=== PATIENT | female | born 1980 | race African-American/Black ===

== ENCOUNTER 2019-03-15 16:30 | Emergency (ER) | payer BC ==
[~2019-03-15] VITALS: Ht 175.3 cm; Wt 78.0 kg
[~2019-03-15 16:30] MED LIST: DOXYCYCLINE 10100 MG PO; ZYRTEC10 MG PO
[2019-03-15 16:57] LABS: ABSOLUTE NEUTROPHILS 3.8 thou/uL (1.4-8.2); BASOPHILS 1.2 % (0.0-2.0); EOSINOPHILS 5.8 % (0.0-3.0); HEMOGLOBIN 12.9 gm/dL (12.0-15.0); LYMPHOCYTES 41.8 % (24.0-44.0); MCH 27.2 pg (26.0-34.0); MCHC 32.2 g/dL (28.0-37.0); MCV 84.4 fL (80.0-100.0); MONOCYTES 7.4 % (1.0-8.0); PLATELET COUNT 344 thou/uL (150-400); POLYS 43.8 % (36.0-66.0); RBC 4.74 mil/uL (4.20-5.00); RDW 14.1 % (10.5-14.5); WBC 8.7 thou/uL (4.0-11.0)
[2019-03-15 17:00] LABS: ANION GAP 11 mmol/L (7-16); BUN 15 mg/dL (7-18); CHLORIDE 104 mmol/L (98-107); CO2 24 mmol/L (21-32); CREATININE 1.1 mg/dL (0.6-1.0); GLUCOSE 90 mg/dL (74-106); POTASSIUM 3.7 mmol/L (3.5-5.1); SODIUM 139 mmol/L (136-145)
[2019-03-15 17:09] LABS: MAGNESIUM 1.8 mg/dL (1.8-2.4); TROPONIN-I <0.06 ng/mL (<0.06)
[2019-03-15] MEDS ORDERED: DILTIAZEM 24HR180 M1 PO (18:05)
[2019-03-15 18:22] VITALS: BP 117/84
--- NOTE | 2019-03-16 09:44 | EKG ---
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 : 1980 Requested By: Alexis Bradshaw Order Number: [id number] MD: Alton Powell Measurements Intervals [place] Rate: 217 P: 0 [place]: QRS: 56 QRSD: 83 T: -31 QT: 237 QTc: 451 Interpretive Statements Supraventricular tachycardia Repolarization abnormality, prob rate related No previous ECG available for comparison Electronically Signed On 03-16-2019 9:44:31 PLASTICS AND COMPOSITES INSPECTOR by Alton Powell [email or web address] <ELECTRONICALLY SIGNED> By: Alton Powell MD, [facility] 03/16/19 0944 1629 1629 Alton Powell MD, FACC /EPI
--- NOTE | 2019-03-16 09:45 | EKG ---
[address] [address] ELECTROCARDIOGRAM REPORT Name: TRE LEPE UMESH Room #: DEP [facility]#: [id number] Admission: 03/15/19 Attend Phys: Discharge: 03/15/19 Date of : 76 Report #: [id number] THIS REPORT FOR: //name// [facility] ED Test Date: 2019-03-15 Test Time: 16:41:16 Pat Name: TRE LEPE Department: Room: Gender: F Vp Software: CHRIS : 1980 Requested By: Alexis Bradshaw Order Number: [id number] MD: Alton Powell Measurements Intervals [place] Rate: 107 P: 61 [place]: 160 QRS: 49 QRSD: 98 T: 26 QT: 330 QTc: 441 Interpretive Statements Sinus tachycardia Normal tracing No previous ECG available for comparison Electronically Signed On 03-16-2019 9:44:43 STAKING PRESS OPERATOR by Alton Powell [email or web address] <ELECTRONICALLY SIGNED> By: Alton Powell MD, [facility] 03/16/19 0944 1641 1641 Alton Powell MD, FACC /EPI
== END 2019-03-15 18:37 | disposition home or self-care (01) ==
LOC: ER 16:30
PROVIDERS: Emergency Medicine
DX: I47.1 Supraventricular tachycardia (principal); Z98.51 Tubal ligation status; Z88.1 Allergy status to other antibiotic agents

== ENCOUNTER 2019-03-17 11:53 | Emergency (ER) | payer BC ==
[~2019-03-17] VITALS: Ht 175.3 cm; Wt 78.0 kg
[~2019-03-17 11:53] MED LIST changes: +DILTIAZEM 24HR180 M1 PO
[2019-03-17 12:28] LABS: ABSOLUTE NEUTROPHILS 2.8 thou/uL (1.4-8.2); BASOPHILS 0.7 % (0.0-2.0); HEMATOCRIT 38.9 % (37.0-47.0); HEMOGLOBIN 12.5 gm/dL (12.0-15.0); LYMPHOCYTES 33.7 % (24.0-44.0); MCH 26.9 pg (26.0-34.0); MCHC 32.2 g/dL (28.0-37.0); MCV 83.6 fL (80.0-100.0); PLATELET COUNT 290 thou/uL (150-400); POLYS 50.6 % (36.0-66.0); RBC 4.66 mil/uL (4.20-5.00); RDW 13.7 % (10.5-14.5); WBC 5.5 thou/uL (4.0-11.0)
[2019-03-17 12:40] LABS: ANION GAP 9 mmol/L (7-16); BUN 9 mg/dL (7-18); CHLORIDE 106 mmol/L (98-107); CO2 21 mmol/L (21-32); GLUCOSE 88 mg/dL (74-106); SODIUM 136 mmol/L (136-145)
[2019-03-17 12:49] LABS: MAGNESIUM 1.9 mg/dL (1.8-2.4); TROPONIN-I <0.06 ng/mL (<0.06)
[2019-03-17 14:07] VITALS: BP 119/80
--- NOTE | 2019-03-18 11:14 | EKG ---
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: [facility] : 1980 Requested By: Michael Branch Order Number: [id number] MD: Benito Campos Measurements Intervals [place] Rate: 88 P: 18 [place]: 158 QRS: -4 QRSD: 93 T: 14 QT: 391 QTc: 473 Interpretive Statements Sinus rhythm Probable left atrial enlargement Compared to ECG 03/15/2019 16:41:16 Sinus tachycardia no longer present Electronically Signed On 03-18-2019 11:14:21 OUTPATIENT PHYSICAL THERAPIST ASSISTANT by Benito Campos [email or web address] <ELECTRONICALLY SIGNED> By: Benito Campos MD 03/18/19 1114 1204 120 Benito Campos MD /SHAYY
== END 2019-03-17 14:07 | disposition home or self-care (01) ==
LOC: ER 11:53
PROVIDERS: Emergency Medicine
DX: R07.89 Other chest pain (principal); Z88.1 Allergy status to other antibiotic agents; Z88.3 Allergy status to other anti-infective agents; Z79.899 Other long term (current) drug therapy; Z98.51 Tubal ligation status; Z98.890 Other specified postprocedural states

== ENCOUNTER → 2019-04-24 | Outpatient (CLI) | payer BC | END | disposition home or self-care (01) | LOC: SJCVCIMAG 09:37 | DX: I07.1 Rheumatic tricuspid insufficiency (principal); I47.1 Supraventricular tachycardia ==

== ENCOUNTER 2019-05-07 06:28 | Observation (INO) | payer BC ==
[~2019-05-07] VITALS: Ht 175.3 cm; Wt 83.5 kg
[2019-05-07] VITALS (11 sets, daily range): BP systolic 97–145; BP diastolic 68–86
[2019-05-07] MEDS ORDERED: BENADRYL25 MG PO (07:26)
[2019-05-07 07:40] LABS: ABSOLUTE NEUTROPHILS 3.1 thou/uL (1.4-8.2); BASOPHILS 1.1 % (0.0-2.0); EOSINOPHILS 10.3 % (0.0-3.0); HEMATOCRIT 35.9 % (37.0-47.0); HEMOGLOBIN 11.5 gm/dL (12.0-15.0); LYMPHOCYTES 32.7 % (24.0-44.0); MCH 26.9 pg (26.0-34.0); MCV 84.1 fL (80.0-100.0); MONOCYTES 10.1 % (1.0-8.0); PLATELET COUNT 267 thou/uL (150-400); POLYS 45.8 % (36.0-66.0); RBC 4.27 mil/uL (4.20-5.00); RDW 13.8 % (10.5-14.5); WBC 6.7 thou/uL (4.0-11.0)
[2019-05-07 07:51] LABS: INR 1.1; PROTIME 10.9 Seconds (9.3-11.4)
[2019-05-07 07:54] LABS: CALCIUM 8.1 mg/dL (8.5-10.1); POTASSIUM 4.2 mmol/L (3.5-5.1)
[2019-05-07 08:01] LABS: ALBUMIN 3.4 g/dL (3.4-5.0); TOTAL BILIRUBIN 0.2 mg/dL (<0.1-1.0); TOTAL PROTEIN 6.9 g/dL (6.4-8.2)
--- NOTE | 2019-05-07 16:36 | NUR ---
PATIENT ARRIVED FROM CATHLAB AT 1300, ALERT AND ORIENTED X4. TIAN GRION SIDE ACCESSED, NIKITA DRESSING INTACT, AND INSTRUCTED PATIENT TO IMMOBOLIZE BLE. VSS AND ADMISSION COMPLETED. PATIENT VOIDED X2. BLE GRION SITE REMAINS INATCT AND WILL CONTINUE WITH POC.
[2019-05-08 00:18] VITALS: BP 118/67
[2019-05-08 00:55] VITALS: BP 118/67
--- NOTE | 2019-05-08 04:24 | NUR ---
ASSESSMENT DOCUMENTED.PT BEEN RESTING IN NO ACUTE DISTRESS.S/P ABLATION.NSR ON MONITOR.VSS.TIAN GROINS INTACT W/O HEMATOMA OR ACTIVE BLEEDING.PULSES 2+ IN ALL EXTREMITIES.UP AD LALIT TO BR,VOIDING ADEQUATELY.POC IS TO DISCHARGE TO HOME TODAY.
[2019-05-08 04:47] VITALS: BP 118/67
[2019-05-08 05:10] VITALS: BP 132/78
[2019-05-08 08:14] VITALS: BP 121/78
[2019-05-08 09:10] VITALS: BP 121/78
--- NOTE | 2019-05-08 10:02 | NUR ---
ASSUMED CARE AT SHIFT CHANGE, ALERT AND ORIENTED X4. SR AND VSS. DISCHARGE INSTRUCTION, AND MEDICATION GIVEN TO PT.
--- NOTE | 2019-05-11 13:02 | P ---
[facility] [place] [address] PROCEDURE REPORT Name: TRE LEPETTE Room #: 205-P [facility]#: [id number] Admission: 05/07/19 Attend Phys: Benito Campos MD Discharge: 05/08/19 Date of : 76 Report #: [id number] THIS REPORT FOR: //name// CC: Florencia Campos DATE OF SERVICE: 05/07/2019 SVT ABLATION PREOPERATIVE DIAGNOSIS: Supraventricular tachycardia. 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 HISTORY: The patient is a 38-year-old female with recurrent supraventricular tachycardia, recently in the Emergency Room with SVT that was terminated with IV adenosine. She is here for EP study and possible ablation. PROCEDURES PERFORMED: 1. SVT ablation, CPT code 99101. 2. EP with left atrial pacing and recording, CPT code 07427. 3. Program stimulation pacing after IV drug infusion, CPT code 97687. 4. Intracardiac echo, CPT code 31864. 5. 3D mapping, CPT code 41710. 6. Mapping of tachycardia, CPT code 59426. 7. Arterial line placement, CPT code 67467. 8. Transseptal procedure, CPT code 45355. ANESTHESIA: The patient underwent MAC anesthesia with no anesthesia related complications. DESCRIPTION OF PROCEDURE: The patient underwent informed consent, where we discussed the details of the procedure including the risks, which include but not limited to bleeding, vascular damage, cardiac perforation, stroke and MD. She understood these risks and is willing to proceed. The patient was brought to the EP laboratory in a fasting and unsedated state and prepped and draped in a sterile fashion. I obtained access to the bilateral femoral veins, initially pacing at 8 and 6-Belgian short sheath in the right femoral vein and a 6 and 7-Belgian short sheath in the left femoral vein. Once the diagnosis was made, I placed a 9-Belgian short sheath in the right femoral vein for the ICE catheter and I obtained access to the right femoral artery, placing a 5-Belgian short sheath for continuous arterial blood pressure monitoring. [facility] [address] [place] [address] PROCEDURE REPORT Name: TRE LEPE Room #: 205-P [facility] Dayanara.#: [id number] Admission: 05/07/19 Attend Phys: Benito Campos MD Discharge: 05/08/19 Date of : 76 Report #: [id number] After sheaths were placed, I placed 3 quadripolar catheters at the HRA, His and RV positions and a decapolar catheter was placed easily in the coronary sinus, which was utilized for left atrial pacing and recording. Next, I checked thresholds on my RV and it was clear that the patient had a left-sided pathway immediately. Next, a basic EP study was performed. At baseline, the patient was in sinus rhythm with sinus cycle length of 590 milliseconds, RI interval 150 milliseconds, QRS duration 100 milliseconds, QT interval 345 milliseconds, AH interval 102 milliseconds, and HV interval of 35 milliseconds. Atrial pacing was performed and AV block was noted at 290 milliseconds. Atrial ERP was noted at 270 milliseconds at a [address] cycle length. There was no evidence of manifest preexcitation. Next, ventricular pacing was performed and VA block was noted at 290 milliseconds and block occurred at the level of the accessory pathway. There was clearly eccentric atrial activation with earliest atrial activity noted at CS1-2 and the latest atrial activity noticed at the HRA catheter. Single atrial extrastimuli were delivered and the SVT was not induced. Isoproterenol infusion was started at 2 mcg per minute. With atrial burst pacing, the patient went into SVT, which was clearly a pathway mediated tachycardia. The tachycardia cycle length was 260 milliseconds. The septal to CS 1-2 was 86 milliseconds and the septal to His A was 140 milliseconds. Next, ventricular entrainment was performed and there was evidence of a V-A-H-V response consistent with AVRT. I was able to terminate this with atrial burst pacing. TRANSSEPTAL PROCEDURE: As such, the patient clearly had a left-sided pathway. I placed a 9-Belgian short sheath in the right femoral vein and placed an ICE catheter up into the right atrium. We created a detailed 3D geometry of the left atrium as well as the mitral valve. The patient was then systemically heparinized and a transseptal was performed using a SL1 sheath and a Dexter needle. This was straightforward. I then placed the ablation catheter into the left atrium. We utilized a SmartTouch ThermoCool ablation catheter. 3D MAPPING AND ABLATION: Next, I created a detailed 3D geometry of the left atrium and the mitral valve. At around 3:00 or 4:00 along the mitral annulus, we found a fusion of the ventricular and atrial signals. I initially performed mapping while pacing the ventricle. While mapping, the patient did go into atrial fibrillation, which lasted about a minute and then this organized into atrial flutter, which lasted another 1-2 minutes. I. I attempted to pace terminate this which was unsuccessful, but then she converted to sinus on her own. She did not require cardioversion. As we were performing the mapping, we appeared to have found the earliest site and we had a nice signal here where there appeared to be nice fusion between the ventricular and atrial signal and there appeared to be a pathway potential noted as well. Therefore, ablation was performed at this site. After 14 seconds of ablation at 50 gambino with good contact, the pathway terminated and there was no longer any VA conduction. I [facility] [address] [place] [address] PROCEDURE REPORT Name: TRE LEPE UMESH Room #: [facility] Baldemar Brunner#: [id number] Admission: 05/07/19 Attend Phys: Benito Campos MD Discharge: 05/08/19 Date of : 76 Report #: [id number] performed ablation here for approximately 2 minutes. I then came off and then after 4 minutes, there was return of the pathway. Therefore, we performed additional mapping and I performed several ablation lesions. I had not very good contact and I performed ablation where there appeared to be fusion. Finally, I decided to switch over to an Agilis sheath and then took my ablation catheter back to the area where the pathway appeared to be located. This resulted in much better contact with about 5 grams of force noted. At this location, I performed ablation and we had termination of the pathway potential. I performed ablation at this site and performed micro manipulations in this area and ablated for approximately 2 minutes to ensure we eliminated this pathway. POST-ABLATION TESTING: Post-ablation, the patient remained in sinus rhythm. Atrial burst pacing was performed and AV block was noted at 270 milliseconds. Atrial ERP was noted at 230 milliseconds at a [address] cycle length. Ventricular burst pacing was performed and there was no evidence of VA conduction. We tested for approximately 45 minutes and there was no return of the pathway and we could not induce any other arrhythmias. As such, intracardiac ultrasound was utilized to verify the absence of a pericardial effusion. As such, the patient received systemic protamine and once ACT was within acceptable range, catheters and sheaths were pulled and hemostasis was obtained. The patient awoke neurologically and hemodynamically intact. No complications and no significant bleeding. CONCLUSIONS: 1. Successful ablation of AVRT secondary to a concealed left-sided accessory pathway located at 4:00 along the mitral annulus. 2. Normal SA patricia function. 3. Normal AV patricia function. 4. Normal His-Purkinje function. 5. Induction of atrial fibrillation and atrial flutter, which is likely a nonspecific finding. 6. No other inducible arrhythmias on or off isoproterenol. <ELECTRONICALLY SIGNED> By: Benito Campos MD 05/11/19 1302 1236 0122 Benito Campos MD /nt
--- NOTE | 2019-05-11 13:02 | D ---
[facility] [place] [address] DISCHARGE SUMMARY Name: TRE LEPE Room #: 205-P [facility] Baldemar Brunner#: [id number] Admission: 05/07/19 Attend Phys: Benito Campos MD Discharge: 05/08/19 Date of : 76 Report #: [id number] THIS REPORT FOR: //name// CC: Florencia Campos DISCHARGE DIAGNOSES: Concealed left-sided accessory pathway. PROCEDURE PERFORMED: SVT ablation. HISTORY OF PRESENT ILLNESS: The patient is a 38-year-old female with recurrent supraventricular tachycardia that is adenosine sensitive. She was here for EP study and was found to have a left-sided accessory pathway that is concealed. She underwent successful ablation of this accessory pathway at around 3-4 o'clock along the mitral annulus. There were no other inducible arrhythmias. HOSPITAL COURSE: She was monitored in the CCU overnight and did well. On the day of discharge, she denied any chest pain, shortness of breath. PHYSICAL EXAMINATION: GENERAL: No acute distress. HEART: Regular rate and rhythm with no murmurs, rubs, gallops. LUNGS: Clear to auscultation bilaterally. ABDOMEN: Soft, nontender. EXTREMITIES: No clubbing, cyanosis, edema and bilateral groins showed no significant bruising, nor any hematomas. On telemetry, she remained in sinus rhythm with no documented arrhythmias. As such, she was deemed stable for discharge home. Discharge instructions were reviewed. I recommended that she discontinue her diltiazem therapy. I recommended that she take aspirin 325 mg daily [id number]. She has a followup appointment with me in 3 months. <ELECTRONICALLY SIGNED> By: Benito Campos MD 05/11/19 1302 0848 0933 Benito Campos MD /nt
== END 2019-05-08 10:23 | disposition home or self-care (01) ==
LOC: CATH → 2N 13:20 → CATH 14:55 → ENTRNSPT 05-08 10:09 → EDTRNSPTSTS 05-08 10:12 → 2N 05-08 10:23
PROVIDERS: ADMIT Internal Medicine Cardiovascular Disease
DX: I47.1 Supraventricular tachycardia (principal)
CPT/HCPCS: 62110; 62900; 65040; 70005

== ENCOUNTER 2019-06-11 10:21 | Emergency (ER) | payer BC ==
[~2019-06-11] VITALS: Ht 175.3 cm; Wt 83.9 kg
[~2019-06-11 10:21] MED LIST changes: +BENADRYL25 MG PO
[2019-06-11 11:24] LABS: ABSOLUTE NEUTROPHILS 2.7 thou/uL (1.4-8.2); BASOPHILS 1.1 % (0.0-2.0); EOSINOPHILS 11.8 % (0.0-3.0); HEMATOCRIT 38.3 % (37.0-47.0); HEMOGLOBIN 12.2 gm/dL (12.0-15.0); LYMPHOCYTES 36.5 % (24.0-44.0); MCH 26.9 pg (26.0-34.0); MCHC 31.9 g/dL (28.0-37.0); MCV 84.5 fL (80.0-100.0); MONOCYTES 9.3 % (1.0-8.0); PLATELET COUNT 260 thou/uL (150-400); POLYS 41.3 % (36.0-66.0); RBC 4.53 mil/uL (4.20-5.00); WBC 6.5 thou/uL (4.0-11.0)
[2019-06-11 11:44] LABS: ANION GAP 10 mmol/L (7-16); BUN 16 mg/dL (7-18); CALCIUM 8.6 mg/dL (8.5-10.1); CHLORIDE 106 mmol/L (98-107); CO2 23 mmol/L (21-32); CREATININE 0.9 mg/dL (0.6-1.0); GLUCOSE 88 mg/dL (74-106); POTASSIUM 4.1 mmol/L (3.5-5.1); SODIUM 139 mmol/L (136-145)
[2019-06-11 11:53] LABS: ALBUMIN 3.6 g/dL (3.4-5.0); SGOT 15 U/L (15-37); SGPT 14 U/L (30-65); TOTAL BILIRUBIN 0.4 mg/dL (<0.1-1.0); TOTAL PROTEIN 7.5 g/dL (6.4-8.2); TROPONIN-I <0.06 ng/mL (<0.06)
[2019-06-11] MEDS ORDERED: MOBIC7.5 MG PO (14:34)
[2019-06-11 14:41] VITALS: BP 134/79
--- NOTE | 2019-06-11 16:59 | EKG ---
[facility] [place] [address] ELECTROCARDIOGRAM REPORT Name: TRE LEPE Room #: DEP [facility]#: [id number] Admission: 06/11/19 Attend Phys: Discharge: 06/11/19 Date of : 76 Report #: [id number] THIS REPORT FOR: cc: Florencia Taylor Diane C. 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 : 1980 Requested By: Lizbet Douglass Order Number: [id number] MD: Alton Powell Measurements Intervals [place] Rate: 73 P: 44 [place]: 151 QRS: 5 QRSD: 95 T: 2 QT: 394 QTc: 435 Interpretive Statements Sinus rhythm Nonspecific T wave abnormality Compared to ECG 03/17/2019 12:04:27 Nonspecific T wave abnormality is now present Electronically Signed On 06-11-2019 16:58:33 SUSTAINABILITY OFFICER by Alton Powell [email or web address] <ELECTRONICALLY SIGNED> By: Alton Powell MD, [facility] 06/11/19 1658 1027 1027 Alton Powell MD, [facility] /EPI
== END 2019-06-11 14:45 | disposition home or self-care (01) ==
LOC: ER 10:21
PROVIDERS: Emergency Medicine
DX: R07.89 Other chest pain (principal); M54.5 Low back pain; R05 Cough; Z88.1 Allergy status to other antibiotic agents

== ENCOUNTER → 2019-06-14 | Outpatient (CLI) | payer BC ==
[~2019-06-14] MED LIST changes: +MOBIC7.5 MG PO
== END ==
LOC: SJCVCIMAG 08:33
DX: R00.2 Palpitations (principal); R00.0 Tachycardia, unspecified; R07.9 Chest pain, unspecified

== ENCOUNTER 2019-11-14 13:59 | Emergency (ER) | payer BC ==
[~2019-11-14] VITALS: Ht 175.3 cm; Wt 86.2 kg
[2019-11-14] MEDS ORDERED: CLARITIN-D 121 EAC1 PO (14:10)
[2019-11-14] MEDS ORDERED: NAPROSYN500 M1 PO (14:10)
[2019-11-14 14:49] LABS: ABSOLUTE NEUTROPHILS 3.6 thou/uL (1.4-8.2); BASOPHILS 0.7 % (0.0-2.0); EOSINOPHILS 10.6 % (0.0-3.0); HEMATOCRIT 35.9 % (37.0-47.0); HEMOGLOBIN 11.9 gm/dL (12.0-15.0); LYMPHOCYTES 31.9 % (24.0-44.0); MCHC 33.3 g/dL (28.0-37.0); MCV 84.1 fL (80.0-100.0); MONOCYTES 8.5 % (1.0-8.0); PLATELET COUNT 276 thou/uL (150-400); POLYS 48.3 % (36.0-66.0); RBC 4.26 mil/uL (4.20-5.00); RDW 14.3 % (10.5-14.5); WBC 7.4 thou/uL (4.0-11.0)
[2019-11-14 15:25] LABS: ANION GAP 11 mmol/L (7-16); BUN 10 mg/dL (7-18); CALCIUM 8.9 mg/dL (8.5-10.1); CHLORIDE 109 mmol/L (98-107); CO2 22 mmol/L (21-32); CREATININE 0.9 mg/dL (0.6-1.0); GLUCOSE 108 mg/dL (74-106); POTASSIUM 3.5 mmol/L (3.5-5.1); SODIUM 142 mmol/L (136-145)
[2019-11-14 15:35] LABS: ALBUMIN 3.5 g/dL (3.4-5.0); DIRECT BILIRUBIN 0.1 mg/dL (<0.1-0.2); SGOT 12 U/L (15-37); SGPT 17 U/L (30-65); TOTAL BILIRUBIN 0.4 mg/dL (0.2-1.0); TOTAL PROTEIN 7.2 g/dL (6.4-8.2); TROPONIN-I <0.06 ng/mL (<0.06)
[2019-11-14] MEDS ORDERED: NORCO 5-325 TA1 EAC2 PO (18:23)
[2019-11-14 18:58] VITALS: BP 142/85
--- NOTE | 2019-11-15 07:32 | EKG ---
[facility] [place] [address] ELECTROCARDIOGRAM REPORT Name: TRE LEPE Room #: DEP [facility]#: [id number] Admission: 11/14/19 Attend Phys: Discharge: 11/14/19 Date of : 76 Report #: [id number] THIS REPORT FOR: cc: Florencia Taylor Diane C. DO Lundgren, Craig H. 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: : 1980 Requested By: Aydee Thompson Order Number: [id number] MD: Alton Powell Measurements Intervals [place] Rate: 85 P: 40 [place]: 151 QRS: -8 QRSD: 107 T: 15 QT: 385 QTc: 458 Interpretive Statements Sinus rhythm Inferior infarct, old Compared to ECG 06/11/2019 10:27:08 T-wave abnormality no longer present Electronically Signed On 11-15-2019 7:32:06 CDT by Alton Powell [email or web address] <ELECTRONICALLY SIGNED> By: Alton Powell MD, [facility] 11/15/19 0732 1415 1415 Alton Powell MD, [facility] /EPI
== END 2019-11-14 18:58 | disposition home or self-care (01) ==
LOC: ER 13:59
PROVIDERS: Emergency Medicine
DX: R07.89 Other chest pain (principal); M54.6 Pain in thoracic spine; M25.572 Pain in left ankle and joints of left foot; R06.02 Shortness of breath; Z98.51 Tubal ligation status; Z98.890 Other specified postprocedural states; Z79.899 Other long term (current) drug therapy; Z88.1 Allergy status to other antibiotic agents